=== PATIENT | female | born 1955 ===

== ENCOUNTER 2018-04-07 08:26 | Outpatient (CLI) | payer OTHER ==
[~2018-04-07 08:26] MED LIST: KEFLEX500 MG PO; ULTRACET PO
== END 2018-04-07 08:29 | disposition home or self-care (01) ==
LOC: SONOGRAMA 08:26
DX: E04.1 Nontoxic single thyroid nodule (principal)

== ENCOUNTER 2020-12-21 09:48 | Day surgery (SDC) | payer OTHER ==
[~2020-12-21 09:48] MED LIST changes: +ATORVASTATIN CA20 MG PO; +HUMALOG100 UNIT/2; +LANTUS SOL100 UNIT/1; +TOPROL XL50 M1 PO; +ZESTRIL20 MG PO
[2020-12-21] MEDS ORDERED: ULTRAM50 MG PO (13:36)
== END 2020-12-21 16:10 | disposition home or self-care (01) ==
LOC: CIR.AMB 09:48
PROVIDERS: ATTEND Surgery
DX: R15.9 Full incontinence of feces (principal); Z20.822 Contact with and (suspected) exposure to COVID-19
CPT/HCPCS: 64590; 95972; L8679